=== PATIENT | male | born 1950 | race Caucasian/White ===

== ENCOUNTER 2018-12-31 08:47 | Emergency (ER) | payer MEDICARE ==
[~2018-12-31] VITALS: Ht 167.6 cm; Wt 81.7 kg
[2018-12-31] MEDS ORDERED: ATORVASTATIN CA40 MG PO (08:57)
[2018-12-31] MEDS ORDERED: LOPRESSOR25 (08:57)
[2018-12-31 09:41] VITALS: BP 157/77
--- NOTE | 2018-12-31 14:50 | EKG ---
[place] [address] ELECTROCARDIOGRAM REPORT Name: RUBEN SARABIA Room: [facility]#: [id number] Admission: 12/31/18 Attend Phys: Discharge: 12/31/18 Date of : 52 Report #: [id number] THIS REPORT FOR: //name// [facility] ED Test Date: 2018-12-31 Test Time: 08:53:34 Pat Name: RUBEN SARABIA Department: Room: Gender: M [employer]: : 1950 Requested By: Raghu Sharp Order Number: [id number] MD: Ceasar Davison Measurements Intervals [place] Rate: 48 P: 54 DE: 191 QRS: 43 QRSD: 95 T: 32 QT: 457 QTc: 409 Interpretive Statements Sinus bradycardia Baseline wander in lead(s) V2 No previous ECG available for comparison Electronically Signed On 12-31-2018 14:49:59 CDT by Ceasar Davison [email or web address] <ELECTRONICALLY SIGNED> By: Ceasar Davison MD, [facility] 12/31/18 [id number] Ceasar Davison MD, FACC /EPI
== END 2018-12-31 09:41 | disposition home or self-care (01) ==
LOC: M.ERS 08:47
DX: K21.9 Gastro-esophageal reflux disease without esophagitis (principal); Z88.5 Allergy status to narcotic agent